=== PATIENT | female | born 1990 | race Hispanic/Latino ===

== ENCOUNTER → 2021-10-19 16:34 | Outpatient (CLI) | payer OTHER, SELFPAY ==
[2021-10-19 18:12] LABS: Add Manual Diff / Slide Review NO; Basophils Absolute Auto 0 /uL (0-100); Basophils Percent Auto 0.6 % (0-2); Eosinophils Absolute Auto 200 /uL (0-450); Eosinophils Percent Auto 3.2 % (2-4); Hematocrit 38.7 % (36-46); Hemoglobin 13.2 g/dL (12.0-16.0); Lymphocytes Absolute Auto 2600 /uL (1100-4500); Lymphocytes Percent Auto 37.3 % (25-40); Mean Corpuscular Hemoglobin 29.2 PG (26-34); Mean Corpuscular Volume 85.8 fL (80-100); Monocytes Absolute Auto 400 /uL (0-900); Monocytes Percent Auto 5.9 % (3-14); Neutrophils Absolute Auto 3700 /uL (1500-7000); Platelet Count 245 X10^3/uL (150-400); Red Blood Cell Count 4.52 X10^6/uL (4.0-5.2); Red Cell Distribution Width 12.5 % (11.6-14.8)
[2021-10-19 18:43] LABS: Hemoglobin A1C% w Est Avg Glu 5.3 % (4.0-6.0)
[2021-10-19 18:56] LABS: HEMOLYSIS < 15 (0-50); Iron 61 ug/dL (37-170)
[2021-10-19 19:02] LABS: Alanine Aminotransferase 11 IU/L (<35); Albumin 4.1 g/dL (3.5-5.0); Albumin Globulin Ratio 1.3 (1.0-2.8); Alkaline Phosphatase 63 U/L (38-126); Aspartate Aminotransferase 21 IU/L (14-36); Bilirubin Total 0.3 mg/dL (0.2-1.3); Blood Urea Nitrogen 17 mg/dL (7-17); Calcium 8.5 mg/dL (8.4-10.2); Carbon Dioxide 26 mmol/L (22-32); Chloride 103 mmol/L (98-107); Estimated Glomerular Filt Rate > 60 mL/min (>60); Globulin 3.1 g/dL (1.7-4.1); Glucose 86 mg/dL (70-100); HEMOLYSIS < 15 (0-50); Lipase 111 U/L (23-300); Potassium 4.1 mmol/L (3.4-5.1); Sodium 139 mmol/L (137-145); Total Protein 7.2 g/dL (6.3-8.2)
[2021-10-19 19:07] LABS: Percent Iron Saturation 17 % (15-50); Total Iron Binding Capacity 353 ug/dL (265-497); Transferrin 266 mg/dL (206-381)
[2021-10-19 19:28] LABS: TSH w/ Reflex to FT4 1.36 uIU/mL (0.47-4.68)
[2021-10-21 11:39] LABS: Insulin Level Total 7.7 uIU/mL (2.6-24.9)
== END ==
PROVIDERS: PCP Pediatrics; Referring Provider Pediatrics; Visit Provider Pediatrics
DX: E16.2 Hypoglycemia, unspecified (principal); R53.83 Other fatigue
CPT/HCPCS: 36415; 80053; 83036; 83525; 83540; 83550; 83690; 84443; 85025

== ENCOUNTER → 2022-03-12 07:02 | Outpatient (CLI) | payer OTHER, SELFPAY ==
[2022-03-12 08:39] LABS: Add Manual Diff / Slide Review NO; Basophils Absolute Auto 0 /uL (0-100); Basophils Percent Auto 0.3 % (0-2); Eosinophils Absolute Auto 100 /uL (0-450); Eosinophils Percent Auto 1.6 % (2-4); Hematocrit 37.8 % (36-46); Hemoglobin 12.8 g/dL (12.0-16.0); Lymphocytes Absolute Auto 1600 /uL (1100-4500); Mean Corpuscular HGB Conc 33.9 % (30-36); Mean Corpuscular Volume 85.6 fL (80-100); Monocytes Absolute Auto 400 /uL (0-900); Monocytes Percent Auto 5.7 % (3-14); Neutrophils Absolute Auto 5100 /uL (1500-7000); Neutrophils Percent Auto 70.4 % (50-75); Platelet Count 253 X10^3/uL (150-400); Red Blood Cell Count 4.42 X10^6/uL (4.0-5.2); White Blood Cell Count 7.2 X10^3/uL (4.5-11.0)
[2022-03-12 09:07] LABS: Specimen Label NATERA
[2022-03-12 09:43] LABS: Hepatitis B Surface Antigen NEGATIVE s/c (NEGATIVE); Rubella Antibody IgG 12.8 IU/mL (>15)
[2022-03-12 10:00] LABS: HIV 1 & 2 Ab/Ag 4th Gen Combo NEGATIVE (NEGATIVE); Hep C Virus Ab w/Reflex Quant NEGATIVE s/c (NEGATIVE)
[2022-03-12 10:38] LABS: Appearance Urine UA CLEAR; Bilirubin Urine UA NEGATIVE (NEGATIVE); Color Urine UA YELLOW; Glucose Urine UA NEGATIVE (Negative); Ketones Urine UA NEGATIVE (NEGATIVE); Leukocyte Esterase Urine UA NEGATIVE (NEGATIVE); Nitrite Urine UA NEGATIVE (Negative); Occult Blood Urine UA NEGATIVE (Negative); Protein Urine UA TRACE (Negative); Specific Gravity Urine UA 1.015 (1.000-1.035); Urobilinogen Urine UA 0.2 E.U./dL (0.2)
[2022-03-12 10:39] LABS: pH Urine UA 8.5 (4.5-8.0)
[2022-03-13 08:12] LABS: RPR Screen Non Reactive (Non Reactive); Varicella IgG Antibody 602 index (Immune >165)
== END ==
PROVIDERS: PCP Pediatrics; Referring Provider Obstetrics & Gynecology; Visit Provider Obstetrics & Gynecology
DX: O09.521 Supervision of elderly multigravida, first trimester (principal)
CPT/HCPCS: 36415; 80055; 81003; 86787; 86803; 86850; 86900; 86901; 87086; 87389

== ENCOUNTER 2022-03-13 10:48 | Emergency (ER) | payer OTHER, SELFPAY ==
[2022-03-13 11:19] VITALS: BP 129/72; PULSE 74; RESP 15; TEMP 36.6; O2SAT 100; BMI 33.3
--- NOTE | 2022-03-13 11:21 | DI.US.S_ITS ---
PROCEDURE: US OB <= 14 WEEKS FETUS INDICATIONS: VAGINAL BLEEDING AT 10 WEEKS OUTSIDE/PRIOR DATING DATA: Last menstrual period (LMP): 12/30/2021. LMP-based estimated date of delivery (DAWIT): 10/06/2022. First dating scan (date and location): 02/26/2022. Estimated date of delivery (DAWIT) from first dating scan: 10/09/2019. TECHNIQUE: Real-time scanning was performed of the fetus and maternal pelvic organs, with image documentation. Endovaginal scanning was also performed to better visualize the fetus and maternal ovaries. COMPARISON: [facility], , OB <= 14 WEEKS FETUS, 02/26/2022, 12:19. FINDINGS: Heart rate is 169 beats per minute. [place]-rump length is 4.5 centimeters with an estimated gestational age of 11 weeks and 2 days. Multiple fibroids measuring up to 2.6 centimeters. No significant perigestational hemorrhage is identified. Left ovarian cyst measuring up to 4.9 centimeters. Right ovary is not well seen. IMPRESSION: Living intrauterine gestation measuring 11 weeks and 2 days by crown-rump length. No significant perigestational hemorrhage. We strive to produce accurate, complete, and clear reports of imaging services. To assist us in improving patient care, this report was composed using standard report templates and voice recognition software. Therefore, it may contain abnormal punctuation, insertions and/or omissions. Occasional wrong-word or sound-alike substitutions may occur. Though we review the report and make efforts to correct it, we do recommend that the report be read carefully in proper context to recognize any text inaccuracies. Dictated by: Stan Bartholomew M.D. on 03/13/2022 at 12:08 Approved by: Stan Bartholomew M.D. on 03/13/2022 at 12:10
[2022-03-13 11:48] LABS: Add Manual Diff / Slide Review NO; Basophils Absolute Auto 0 /uL (0-100); Basophils Percent Auto 0.3 % (0-2); Eosinophils Absolute Auto 100 /uL (0-450); Eosinophils Percent Auto 1.4 % (2-4); Hematocrit 38.2 % (36-46); Lymphocytes Absolute Auto 1800 /uL (1100-4500); Lymphocytes Percent Auto 20.5 % (25-40); Mean Corpuscular Hemoglobin 29.1 PG (26-34); Mean Corpuscular Volume 85.6 fL (80-100); Monocytes Absolute Auto 600 /uL (0-900); Monocytes Percent Auto 6.6 % (3-14); Neutrophils Absolute Auto 6300 /uL (1500-7000); Neutrophils Percent Auto 71.2 % (50-75); Platelet Count 250 X10^3/uL (150-400); Red Blood Cell Count 4.47 X10^6/uL (4.0-5.2); Red Cell Distribution Width 13.1 % (11.6-14.8); White Blood Cell Count 8.8 X10^3/uL (4.5-11.0)
[2022-03-13 11:51] LABS: Alanine Aminotransferase 14 IU/L (<35); Albumin 3.8 g/dL (3.5-5.0); Albumin Globulin Ratio 1.2 (1.0-2.8); Alkaline Phosphatase 53 U/L (38-126); Aspartate Aminotransferase 17 IU/L (14-36); BUN Creatinine Ratio 18.4 (6-22); Bilirubin Total 0.4 mg/dL (0.2-1.3); Blood Urea Nitrogen 9 mg/dL (7-17); Calcium 8.6 mg/dL (8.4-10.2); Carbon Dioxide 24 mmol/L (22-32); Chloride 104 mmol/L (98-107); Estimated Glomerular Filt Rate > 60 mL/min (>60); Globulin 3.2 g/dL (1.7-4.1); Glucose 88 mg/dL (70-100); HEMOLYSIS < 15 (0-50); Potassium 4.1 mmol/L (3.4-5.1); Sodium 136 mmol/L (137-145)
--- NOTE | 2022-03-13 12:18 | ED_ITS ---
HPI - General Chief complaint: Vaginal Bleeding Stated complaint: 10wks , Spotting Time Seen by Provider: 03/13/22 12:17 Source: patient Mode of arrival: Ambulatory Limitations: no limitations History of Present Illness HPI Narrative: This is a 31-year-old female who is 10 weeks and presents to emergency department with light vaginal spotting which started last night, states that she has had morning sickness the last 2 nights, states that the bleeding has progressed today now with clotting, she has needed to change her pad. Related Data Home Medications Medication Instructions Recorded Confirmed calcium carb,cit ER 600 mg-vit D3 2 tab PO DAILY 02/05/22 02/26/22 12.5 mcg (500 unit) tablet,ext.rel (Citracal-D3 Slow Release) cetirizine 10 mg tablet (Zyrtec) 10 mg PO DAILY PRN 02/05/22 02/26/22 prenat.vits,jerry,duu-stgz-pvjna 1 tab PO DAILY 02/05/22 02/26/22 Allergies Allergy/AdvReac Type Severity Reaction Status Date / Time No Known Drug Allergies Allergy Verified 03/13/22 11:19 Review of Systems Review of Systems Narrative: Review of systems is negative for acute abnormalities unless otherwise noted in HPI Exam Narrative Exam Narrative: Reviewed vitals signs and nursing notes. General: cooperative, comfortable, in no acute distress, well groomed HEENT: symmetrical facial expressions, moist mucous membranes Abdomen: Gravid, soft palpation, without tenderness, no suprapubic tenderness, endorses mild cramping without flank tenderness, pad with small amount of dark red clots MSK: moves all extremities, neurovascularly intact, no weakness, normal tone Skin: brisk capillary refill, without pallor or erythema Neuro: normal speech and cognition, A&O x3, ambulatory, clear speech Psych: mental status is grossly normal, congruent mood, normal affect, pleasant and cooperative Initial Vital Signs Initial Vital Signs: Vital Signs Temperature 97.8 F 03/13/22 11:19 Pulse Rate 74 03/13/22 11:19 Respiratory Rate 15 03/13/22 11:19 Blood Pressure 129/72 03/13/22 11:19 Pulse Oximetry 100 03/13/22 11:19 Oxygen Delivery Method 03/13/22 11:19 Course Orders Ordered: ED Orders 03/13/22 11:21 US OB <= 14 weeks fetus Stat 03/13/22 11:24 ABO RH Type Stat Complete Blood Count AUTO DIFF Stat Comprehensive Metabolic Panel Stat HCG Quantitative /Beta subunit Stat 03/13/22 12:03 Urine Microscopic Stat Consultations Consultation #1: Consultation with Dr. Amaya who was on-call for OBGYN, she recommends watching and waiting, follow-up at Dr. Qureshi's office, Vital Signs Vital signs: Vital Signs - 8 hr 03/13/22 11:19 03/13/22 14:47 03/13/22 15:25 Temperature 97.8 F Pulse Rate 74 86 84 Respiratory Rate 15 22 Blood Pressure 129/72 131/61 116/80 Pulse Oximetry 100 99 99 Oxygen Delivery Method Room Air Room Air Room Air MDM - OB/Uterine Contractions Lab Data Result diagrams: 03/13/22 11:24 03/13/22 11:24 Labs: Lab Results 03/13/22 03/13/22 03/13/22 Range/Units 11:24 11:24 11:24 WBC 8.8 (4.5-11.0) X10^3/uL RBC 4.47 (4.0-5.2) X10^6/uL Hgb 13.0 (12.0-16.0) g/dL Hct 38.2 (36-46) % MCV 85.6 (80-100) fL MCH 29.1 (26-34) PG MCHC 34.0 (30-36) % RDW 13.1 (11.6-14.8) % Plt Count 250 (150-400) X10^3/uL Neut % (Auto) 71.2 (50-75) % Lymph % (Auto) 20.5 L (25-40) % [place] % (Auto) 6.6 (3-14) % Eos % (Auto) 1.4 L (2-4) % Baso % (Auto) 0.3 (0-2) % Neut # (Auto) 6300 (6590-3684) /uL Lymph # (Auto) 1800 (9807-0900) /uL [place] # (Auto) 600 (0-900) /uL Eos # (Auto) 100 (0-450) /uL Baso # (Auto) 0 (0-100) /uL Sodium 136 L (137-145) mmol/L Potassium 4.1 (3.4-5.1) mmol/L Chloride 104 (98-107) mmol/L Carbon Dioxide 24 (22-32) mmol/L BUN 9 (7-17) mg/dL Creatinine 0.49 L (0.52-1.04) mg/dL Estimated GFR > 60 (>60) mL/min BUN/Creatinine Ratio 18.4 (6-22) Glucose 88 (70-100) mg/dL Calcium 8.6 (8.4-10.2) mg/dL Total Bilirubin 0.4 (0.2-1.3) mg/dL AST 17 (14-36) IU/L ALT 14 (<35) IU/L Alkaline Phosphatase 53 (38-126) U/L Total Protein 7.0 (6.3-8.2) g/dL Albumin 3.8 (3.5-5.0) g/dL Globulin 3.2 (1.7-4.1) g/dL Albumin/Globulin Ratio 1.2 (1.0-2.8) HCG, Quant 38290 mIU/mL Urine RBC (0-5/HPF) Urine WBC (0-5/HPF) Ur Squamous Epith Cells (0-5/HPF) Urine Bacteria (None) Ur Culture Indicated? Blood Type AB Positive 03/13/22 Range/Units 12:03 WBC (4.5-11.0) X10^3/uL RBC (4.0-5.2) X10^6/uL Hgb (12.0-16.0) g/dL Hct (36-46) % MCV (80-100) fL MCH (26-34) PG MCHC (30-36) % RDW (11.6-14.8) % Plt Count (150-400) X10^3/uL Neut % (Auto) (50-75) % Lymph % (Auto) (25-40) % [place] % (Auto) (3-14) % Eos % (Auto) (2-4) % Baso % (Auto) (0-2) % Neut # (Auto) (4707-3421) /uL Lymph # (Auto) (4784-8345) /uL [place] # (Auto) (0-900) /uL Eos # (Auto) (0-450) /uL Baso # (Auto) (0-100) /uL Sodium (137-145) mmol/L Potassium (3.4-5.1) mmol/L Chloride (98-107) mmol/L Carbon Dioxide (22-32) mmol/L BUN (7-17) mg/dL Creatinine (0.52-1.04) mg/dL Estimated GFR (>60) mL/min BUN/Creatinine Ratio (6-22) Glucose (70-100) mg/dL Calcium (8.4-10.2) mg/dL Total Bilirubin (0.2-1.3) mg/dL AST (14-36) IU/L ALT (<35) IU/L Alkaline Phosphatase (38-126) U/L Total Protein (6.3-8.2) g/dL Albumin (3.5-5.0) g/dL Globulin (1.7-4.1) g/dL Albumin/Globulin Ratio (1.0-2.8) HCG, Quant mIU/mL Urine RBC 1-5/hpf (0-5/HPF) Urine WBC None seen (0-5/HPF) Ur Squamous Epith Cells None seen (0-5/HPF) Urine Bacteria None seen (None) Ur Culture Indicated? Cult not indicated Blood Type Urine Dip Bedside Urine Glucose Negative Bedside Urine Bilirubin - Negative Bedside Urine Ketone - Negative Urine Specific [place] 1.015 Bedside Urine Occult Blood +++ Bedside Urine pH 7.0 Bedside Urine Protein - Negative Bedside Urine Urobilinogen - Negative Bedside Urine Nitrite - Negative Bedside Urine Leukocytes - Negative Esterase Imaging Data US - OB: Radiologist's Impression: PROCEDURE:? US OB <= 14 WEEKS FETUS ? INDICATIONS:? VAGINAL BLEEDING AT 10 WEEKS ? OUTSIDE/PRIOR DATING DATA:? Last menstrual period (LMP):? 12/30/2021.? LMP-based estimated date of delivery (DAWIT):? 10/06/2022.? First dating scan (date and location):? 02/26/2022.? Estimated date of delivery (DAWIT) from first dating scan:? 10/09/2019. ? TECHNIQUE:? Real-time scanning was performed of the fetus and maternal pelvic organs, with image documentation.? Endovaginal scanning was also performed to better visualize the fetus and maternal ovaries.? ? COMPARISON:? [facility], [place], US OB <= 14 WEEKS FETUS, , 12:19. ? FINDINGS:? Heart rate is 169 beats per minute.? [place]-rump length is 4.5 centimeters with an estimated gestational age of 11 weeks and 2 days. ? Multiple fibroids measuring up to 2.6 centimeters.? No significant perigestational hemorrhage is identified. ? Left ovarian cyst measuring up to 4.9 centimeters.? Right ovary is not well seen. ? IMPRESSION:? Living intrauterine gestation measuring 11 weeks and 2 days by crown-rump length.? No significant perigestational hemorrhage. ? We strive to produce accurate, complete, and clear reports of imaging services. To assist us in improving patient care, this report was composed using standard report templates and voice recognition software. Therefore, it may contain abnormal punctuation, insertions and/or omissions. Occasional wrong-word or sound-alike substitutions may occur. Though we review the report and make efforts to correct it, we do recommend that the report be read carefully in proper context to recognize any text cole ccuracies. ? ? Dictated by: Stan Bartholomew M.D. on 03/13/2022 at 12:08 ? ? Approved by: Stan Bartholomew M.D. on 03/13/2022 at 12:10 ? MDM Narrative Medical decision making narrative: 31-year-old female, who is 10 weeks' gestation, presents to the emergency department with progressive vaginal bleeding that started last night, OB ultrasound saw a living intrauterine gestation measuring 11 weeks and 2 days without danyel gestational hemorrhage, multiple fibroids measuring up to 2.6 cm without significant perigestational hemorrhage, left ovarian cyst measuring 4.9 cm, right ovary is not well seen. Heart rate of the fetus was 169 beats per minute. Patient's lab work overall is reassuring. Patient's bleeding did increase while she was waiting in the emergency department over the 4 and a hours, phone call with Dr. Lacy was covering OBGYN who recommends follow-up with Dr. Qureshi's triage nurse whom I spoke with, Dr. Qureshi will be in touch and is aware that patient's vaginal bleeding has increased, she was updated about the ultrasound and will schedule follow-up for the patient within the next 24-48 hours. She was instructed to return if her symptoms worsen between now then, to stay hydrated, if her bleeding becomes increase or severe, to come directly to the emergency department and not to wait for an ultrasound. Discharge Plan Departure Patient Disposition: Home Clinical Impression: Vaginal bleeding in Instructions: DI for Vaginal Bleeding During Activity Restrictions/Additional Instructions: *You have been diagnosed with vaginal bleeding . I have spoke with the triage nurse at Dr. Qureshi's office, she will be in contact with you before the end of the day about following up with ultrasound. If you are unable to get back into the clinic for an ultrasound with a provider in the next 24-48 hours, you may return to the emergency department for any worsening symptoms, increased bleeding, if you have nausea, vomiting, chills or feel lightheaded, please come to the emergency department instead of waiting for an ultrasound. Please take Tylenol as needed for cramping, try to keep drinking clear fluids and stay hydrated. Your urine does not look like it did today, Dr. Qureshi is out of town but she is checking email in speaking with the triage nurse so she will hear about the update from the emergency department and be in touch. Thank you for your patience today, I hope you feel better soon. *What to do: *Please continue to take your regular medications as directed. [ ] New medication prescriptions sent to your pharmacy: [ ] [ ] New medication written as a paper prescription [x ] No new medications given *Please follow up with your primary care provider in 2-3 days, call for an appointment. Let them know you were seen in the Emergency Department and that we asked that you be seen for follow-up. We will electronically transmit a record of today's note if your PCP is in our system *If you do not have a primary care provider please contact [phone] to establish care with one of [facility] primary care providers. *Return to Emergency Department if you should have any new, worsening, or concerning symptoms, such as [fever greater than 101F, chills, worsening pain, persistent vomiting or other bothersome symptoms]. Prescriptions: No Action prenat.vits,jerry,ood-vrrk-gcpkg Tablet 1 tab PO DAILY calcium carb and citrate-vitD3 [Citracal-D3 Slow Release] 600 mg-12.5 mcg (500 unit) tablet extended release 2 tab PO DAILY cetirizine [Zyrtec] 10 mg tablet 10 mg PO DAILY PRN Referrals: Neelima Qureshi MD [Physician] - Milo Hernandez MD [Primary Care Provider] - Visit Report Forms: Patient Portal/API
[2022-03-13 12:32] LABS: HCG Quantitative /Beta subunit 70185 mIU/mL
[2022-03-13 13:18] LABS: Bacteria Urine None Seen; Culture Indicated Urine Cult Not Indicated; RBC Urine 1-5/HPF (0-5/HPF); Squamous Epithelial Cell Urine None Seen (0-5/HPF); WBC Urine None Seen (0-5/HPF)
[2022-03-13 14:47] VITALS: BP 131/61; PULSE 86; O2SAT 99
[2022-03-13 15:25] VITALS: BP 116/80; PULSE 84; RESP 22; O2SAT 99
== END 2022-03-13 15:26 | disposition home or self-care (01) ==
PROVIDERS: Emergency Medicine; Emergency Provider Nurse Practitioner Critical Care Medicine; PCP Pediatrics
DX: O46.91 Antepartum hemorrhage, unspecified, first trimester (principal); Z3A.10 10 weeks gestation of pregnancy
CPT/HCPCS: 36415; 76801; 76817; 80053; 81003; 81015; 84702; 85025; 86900; 86901; 99281; 99284

== ENCOUNTER → 2022-03-26 10:26 | Outpatient (CLI) | payer OTHER, SELFPAY ==
[2022-03-26 15:13] LABS: Urine N gonorrhoeae NOT DETECTED
[2022-03-26 15:22] LABS: Urine Chlamydia NOT DETECTED
== END ==
PROVIDERS: PCP Pediatrics; Visit Provider Obstetrics & Gynecology
DX: Z34.81 Encounter for supervision of other normal pregnancy, first trimester (principal); Z3A.12 12 weeks gestation of pregnancy
CPT/HCPCS: 87491; 87591

== ENCOUNTER → 2022-04-25 07:58 | Outpatient (CLI) | payer OTHER, SELFPAY ==
[2022-04-27 22:03] LABS: AFP Value 28.8 ng/mL (.); Gest Age on Col Date 16.6 weeks (.); Insulin Dep Diabetes No (.); OSBR Risk 1IN 10000 (.); Results Report (.); Test Results *Screen Negative* (.)
== END ==
PROVIDERS: Referring Provider Obstetrics & Gynecology; Visit Provider Obstetrics & Gynecology
DX: Z34.82 Encounter for supervision of other normal pregnancy, second trimester (principal); Z3A.16 16 weeks gestation of pregnancy; R31.9 Hematuria, unspecified
CPT/HCPCS: 36415; 82105; 87086

== ENCOUNTER → 2022-05-28 06:48 | Outpatient (CLI) | payer OTHER, SELFPAY ==
--- NOTE | 2022-05-28 06:49 | DI.US.S_ITS ---
PROCEDURE: US OB >= 14 WEEKS FETUS INDICATIONS: ANATOMY OUTSIDE/PRIOR DATING DATA: Last menstrual period (LMP): 12/30/2021. LMP-based estimated date of delivery (DAWIT): 10/06/2022. First dating scan (date and location): 02/26/2022. Estimated date of delivery (DAWIT) from first dating scan: 02/26/2022. The calculations are made using the ultrasound DAWIT of 10/08/2022. TECHNIQUE: Real-time scanning was performed of the fetus, with image documentation and biometric measurements. Endovaginal scanning: Not performed. COMPARISON: None. FINDINGS: General: A single living intrauterine gestation is present. Presentation: Breech. Placenta: Placental position is posterior , without previa. Amniotic fluid index: 15.6 cm cm, normal range is 5-24 cm. Single deepest vertical pocket is 4.9 cm. heart rate: 143 beats per minute. Maternal cervical canal: 3.7 cm long. Normal lower limit is 2.5 cm. biometrics: Biparietal diameter: 4.9 cm Head circumference: 18.9 cm Abdominal circumference: 17.0 cm Femur length: 3.6 cm Clinically estimated gestational age: 21 weeks 2 days Composite gestational age from present scan: 21 weeks 3 days Estimated weight and percentile: 444 g, 67th percentile Anatomic survey: Neuro: Ventricles are non-dilated at less than 10 mm. Cisterna magna is normal at 3-11 mm. Cerebellum is normal in size and morphology. Nuchal skin fold: Normal at less than 6 mm between 14-21 weeks gestational age. Face: Nose and lips, facial profile are normal. Spine: No evidence for spina bifida. Heart: 4-chambered heart is present, with normal ventricular outflow tracts. Diaphragm: Diaphragm is intact. Stomach: Left-sided stomach is present. Kidneys: No hydronephrosis. Normal is less than 5 mm in 2nd trimester, less than 7 mm in 3rd trimester. Cord: 3-vessel cord has orthotopic insertion. Bladder: Normal in size. Extremities: All 4 extremities identified. IMPRESSION: Single living intrauterine gestation, estimated gestational age 21 weeks 3 days based on today's examination. Normal anatomic survey. We strive to produce accurate, complete, and clear reports of imaging services. To assist us in improving patient care, this report was composed using standard report templates and voice recognition software. Therefore, it may contain abnormal punctuation, insertions and/or omissions. Occasional wrong-word or sound-alike substitutions may occur. Though we review the report and make efforts to correct it, we do recommend that the report be read carefully in proper context to recognize any text inaccuracies. Dictated by: Marc Quezada M.D. on 05/28/2022 at 13:07 Approved by: Marc Quezada M.D. on 05/28/2022 at 13:09
== END ==
PROVIDERS: Referring Provider Obstetrics & Gynecology; Visit Provider Obstetrics & Gynecology
DX: Z34.82 Encounter for supervision of other normal pregnancy, second trimester (principal); Z3A.21 21 weeks gestation of pregnancy
CPT/HCPCS: 76811

== ENCOUNTER 2022-06-14 15:06 | Emergency (ER) | payer OTHER, SELFPAY ==
[2022-06-14] VITALS (9 sets, daily range): BP systolic 129–160; BP diastolic 63–73; PULSE 87–95; RESP 16–58; TEMP 36.6; O2SAT 98–100; BMI 34.9
--- NOTE | 2022-06-14 15:19 | DI.RAD.S_ITS ---
PROCEDURE: XR CHEST 1V INDICATIONS: Shortness of breath TECHNIQUE: One view of the chest was acquired. COMPARISON: None. FINDINGS: Surgical changes and devices: None. Lungs and pleura: Lungs are clear. No pleural effusions or pneumothorax. Mediastinum: Mediastinal contours appear normal. Heart size is normal. Bones and chest wall: No suspicious bony lesions. Overlying soft tissues appear unremarkable. IMPRESSION: No acute pulmonary process. Dictated by: Antoinette White M.D. on 06/14/2022 at 16:05 Approved by: Antoinette White M.D. on 06/14/2022 at 16:05
[2022-06-14 15:45] LABS: Add Manual Diff / Slide Review NO; Basophils Absolute Auto 100 /uL (0-100); Basophils Percent Auto 0.5 % (0-2); Eosinophils Absolute Auto 300 /uL (0-450); Eosinophils Percent Auto 2.6 % (2-4); Hemoglobin 12.4 g/dL (12.0-16.0); Lymphocytes Absolute Auto 1300 /uL (1100-4500); Lymphocytes Percent Auto 12.6 % (25-40); Mean Corpuscular HGB Conc 34.5 % (30-36); Mean Corpuscular Hemoglobin 30.1 PG (26-34); Mean Corpuscular Volume 87.2 fL (80-100); Monocytes Absolute Auto 700 /uL (0-900); Monocytes Percent Auto 6.5 % (3-14); Neutrophils Absolute Auto 8200 /uL (1500-7000); Neutrophils Percent Auto 77.8 % (50-75); Platelet Count 285 X10^3/uL (150-400); Red Blood Cell Count 4.13 X10^6/uL (4.0-5.2); Red Cell Distribution Width 13.6 % (11.6-14.8); White Blood Cell Count 10.5 X10^3/uL (4.5-11.0)
--- NOTE | 2022-06-14 15:51 | ED_ITS ---
HPI - General Adult General Chief complaint: Chest Pain Stated complaint: SOB, Fatigue, Chest tightness, Congestion Time Seen by Provider: 06/14/22 15:33 Source: patient Mode of arrival: Ambulatory Limitations: no limitations History of Present Illness HPI narrative: 31-year-old female. Is a at approximately 23 weeks EGA. Is here for evaluation of shortness of breath and cough and congestion and fatigue. She actually states that 2 months ago at the beginning of April she tested positive for COVID. She is had fairly consistent symptoms since that time. She denies fevers. She does have some cramping specifically when she is coughing but no loss of fluid. No fevers. She is being followed by OB. She was given a recommendation by OB for medications she can take during to try to help with her symptoms. States last evening she was coughing so much that she felt like her heart rate was beating fast and she somewhat panicked about her symptoms so she decided to come in today to be evaluated. Related Data Home Medications Medication Instructions Recorded Confirmed calcium carb,cit ER 600 mg-vit D3 2 tab PO DAILY 02/05/22 05/21/22 12.5 mcg (500 unit) tablet,ext.rel (Citracal-D3 Slow Release) cetirizine 10 mg tablet (Zyrtec) 10 mg PO DAILY PRN 02/05/22 05/21/22 prenat.vits,jerry,flc-vtir-hfqfj 1 tab PO DAILY 02/05/22 05/21/22 Previous Rx's Medication Instructions Recorded albuterol sulfate 90 mcg/actuation 2 puff inhalation Q4-6H PRN 06/14/22 aerosol inhaler shortness of breath or wheezing #8.5 grams Allergies Allergy/AdvReac Type Severity Reaction Status Date / Time No Known Drug Allergies Allergy Verified 06/14/22 15:54 Review of Systems Constitutional Constitutional: Reports system reviewed and no additional complaints, except as documented ENT Ears, Nose, Mouth, and Throat: Reports system reviewed and no additional complaints, except as documented Respiratory Respiratory: Reports system reviewed and no additional complaints, except as documented Gastrointestinal Gastrointestinal: Reports system reviewed and no additional complaints, except as documented Genitourinary Genitourinary: Reports system reviewed and no additional complaints, except as documented Integumentary/Breasts Skin/Breast: Reports system reviewed and no additional complaints, except as documented Hematologic/Lymphatic On Anticoagulants: No Patient History Medical History Acne (~2018) Anxiety and depression (~2018) Back pain Disease of spine (~2017) Fatigue Headache (~2018) Hypoglycemia Surgical History Anesthesia History of microdiscectomy (~10/11/18) History of sinus surgery (~01/2021) History of sleeve gastrectomy History of weight loss surgery (~06/11/21) [place] teeth extracted Family History Father Accident Mother Hypertension Diabetes mellitus Seizures Thyroid disease Hyperlipidemia Anxiety Grandfather Diabetes mellitus History of heart disease Hypertension Pancreatic cancer Social History marital status: number of children: 1 household members: spouse, family (mother) and children lives independently: Yes housing: house pets and animals: Yes (1 dog, manages all cleanup) education level: master's degree occupational status: previously employed and student current occupational exposures/hazards: No special andrea needs: No travel history: recent (domestic only) seatbelt use: always helmet use: Yes water heater temp set < 120 deg: Yes working smoke detector in home: Yes fire extinguisher in home: Yes carbon monox detector in home: Yes firearms in home: Yes firearms unloaded and locked: Yes do you feel safe at home: Yes Smoking Status: Never smoker second hand exposure: Yes (neighbors smoke) alcohol intake: never substance use type: does not use during the past year weight has: decreased > 10 lbs (gastric sleeve in May) well-balanced diet: daily or most days daily servings fruits/ve-4 caffeine: Yes (Aware of 200mg limit) Type(s) of exercise: walking and regular exercise (physical therapy) Smoking Status: Never smoker Exam Initial Vital Signs Initial Vital Signs: Vital Signs Pulse Rate 95 H 06/14/22 15:13 Pulse Oximetry 99 06/14/22 15:13 Const General: cooperative and comfortable Resp Effort & Inspection: normal respiratory effort, not labored, no respiratory distress, no retractions and not tachypneic Auscultation: clear to auscultation bilaterally Cardio Rate: regular rate Rhythm: regular rhythm GI Inspection: normal to inspection Skin General: no rashes or lesions noted Neuro General: patient alert, patient awake and moves all extremities Extrem General: normal to inspection and capillary refill normal Psych Appearance: grossly normal and well kempt Course Orders Ordered: ED Orders 06/14/22 15:19 XR chest 1V Stat EKG-12 Lead Stat Measure peak expiratory flow ONCE RT Consult Eval and Treat NOW 06/14/22 15:20 Complete Blood Count AUTO DIFF Stat Comprehensive Metabolic Panel Stat Lactate (Lactic Acid) Stat NT-proBNP (BNP-Adult 18+) Stat Prothrombin Time INR Stat Respiratory Panel (Film Array) Stat Troponin I Stat Vital Signs Vital signs: Vital Signs - 8 hr 06/14/22 15:15 06/14/22 15:13 06/14/22 15:14 Temperature 97.9 F Pulse Rate 90 95 H 92 H Respiratory Rate 16 Blood Pressure 129/63 Pulse Oximetry 100 99 100 Oxygen Delivery Method Room Air 06/14/22 15:14 06/14/22 15:30 06/14/22 16:00 Temperature Pulse Rate 91 H 87 Respiratory Rate 20 23 Blood Pressure 129/63 Pulse Oximetry 99 98 Oxygen Delivery Method 06/14/22 16:28 06/14/22 16:28 06/14/22 16:30 Temperature Pulse Rate 94 H Respiratory Rate 30 H Blood Pressure 141/71 H 144/73 H Pulse Oximetry Oxygen Delivery Method 06/14/22 16:30 06/14/22 17:00 06/14/22 17:01 Temperature Pulse Rate 92 H 90 95 H Respiratory Rate 23 58 H 40 H Blood Pressure Pulse Oximetry 99 99 Oxygen Delivery Method 06/14/22 17:01 Temperature Pulse Rate Respiratory Rate Blood Pressure 160/70 H Pulse Oximetry Oxygen Delivery Method Medical Decision Making Medical Records Medical records reviewed: Yes I reviewed the patient's medical records. Lab Data Lab results reviewed: Yes I reviewed the patient's lab results. 06/14/22 15:20 06/14/22 15:20 Labs: Lab Results 06/14/22 06/14/22 06/14/22 Range/Units 15:20 15:20 15:20 WBC 10.5 (4.5-11.0) X10^3/uL RBC 4.13 (4.0-5.2) X10^6/uL Hgb 12.4 (12.0-16.0) g/dL Hct 36.0 (36-46) % MCV 87.2 (80-100) fL MCH 30.1 (26-34) PG MCHC 34.5 (30-36) % RDW 13.6 (11.6-14.8) % Plt Count 285 (150-400) X10^3/uL Neut % (Auto) 77.8 H (50-75) % Lymph % (Auto) 12.6 L (25-40) % [place] % (Auto) 6.5 (3-14) % Eos % (Auto) 2.6 (2-4) % Baso % (Auto) 0.5 (0-2) % Neut # (Auto) 8200 H (8380-2533) /uL Lymph # (Auto) 1300 (8558-7567) /uL [place] # (Auto) 700 (0-900) /uL Eos # (Auto) 300 (0-450) /uL Baso # (Auto) 100 (0-100) /uL PT 12.3 (10.1-12.7) SECONDS INR 1.1 (0.9-1.3) Sodium 133 L (137-145) mmol/L Potassium 3.9 (3.4-5.1) mmol/L Chloride 104 (98-107) mmol/L Carbon Dioxide 23 (22-32) mmol/L BUN 10 (7-17) mg/dL Creatinine 0.44 L (0.52-1.04) mg/dL Estimated GFR > 60 (>60) mL/min BUN/Creatinine Ratio 22.7 H (6-22) Glucose 84 (70-100) mg/dL Lactate (0.7-2.1) mmol/L Calcium 8.5 (8.4-10.2) mg/dL Total Bilirubin 0.4 (0.2-1.3) mg/dL AST 25 (14-36) IU/L ALT 18 (<35) IU/L Alkaline Phosphatase 72 (38-126) U/L Troponin I < 0.012 (0.01-0.034) ng/mL NT-Pro-B Natriuret Pep 161 H (<125) pg/mL Total Protein 7.2 (6.3-8.2) g/dL Albumin 3.7 (3.5-5.0) g/dL Globulin 3.5 (1.7-4.1) g/dL Albumin/Globulin Ratio 1.1 (1.0-2.8) Chlamy pneumoniae PCR (Not Detect) Adenovirus (PCR) (Not Detect) B. pertussis DNA (PCR) (Not Detecte) B.parapertussis DNA PCR (Not Detecte) Coronavirus OC43 (PCR) (Not Detect) Coronavirus HKU1 (PCR) (Not Detect) Coronavirus 229E (PCR) (Not Detect) SARS-CoV-2 (PCR) (Not Detecte) Coronavirus NL63 (PCR) (Not Detect) Human Metapneumovir PCR (Not Detect) Influenza Type A (PCR) (Not Detect) Influenza Type B (PCR) (Not Detect) M. pneumoniae (PCR) (Not Detect) Parainfluenza 1 (PCR) (Not Detect) Parainfluenza 2 (PCR) (Not Detect) Parainfluenza 3 (PCR) (Not Detect) Parainfluenza 4 (PCR) (Not Detect) RSV (PCR) (Not Detect) Entero/Rhino (PCR) (Not Detect) 06/14/22 06/14/22 Range/Units 15:20 15:20 WBC (4.5-11.0) X10^3/uL RBC (4.0-5.2) X10^6/uL Hgb (12.0-16.0) g/dL Hct (36-46) % MCV (80-100) fL MCH (26-34) PG MCHC (30-36) % RDW (11.6-14.8) % Plt Count (150-400) X10^3/uL Neut % (Auto) (50-75) % Lymph % (Auto) (25-40) % [place] % (Auto) (3-14) % Eos % (Auto) (2-4) % Baso % (Auto) (0-2) % Neut # (Auto) (2013-2716) /uL Lymph # (Auto) (7192-9539) /uL [place] # (Auto) (0-900) /uL Eos # (Auto) (0-450) /uL Baso # (Auto) (0-100) /uL PT (10.1-12.7) SECONDS INR (0.9-1.3) Sodium (137-145) mmol/L Potassium (3.4-5.1) mmol/L Chloride (98-107) mmol/L Carbon Dioxide (22-32) mmol/L BUN (7-17) mg/dL Creatinine (0.52-1.04) mg/dL Estimated GFR (>60) mL/min BUN/Creatinine Ratio (6-22) Glucose (70-100) mg/dL Lactate 1.1 (0.7-2.1) mmol/L Calcium (8.4-10.2) mg/dL Total Bilirubin (0.2-1.3) mg/dL AST (14-36) IU/L ALT (<35) IU/L Alkaline Phosphatase (38-126) U/L Troponin I (0.01-0.034) ng/mL NT-Pro-B Natriuret Pep (<125) pg/mL Total Protein (6.3-8.2) g/dL Albumin (3.5-5.0) g/dL Globulin (1.7-4.1) g/dL Albumin/Globulin Ratio (1.0-2.8) Chlamy pneumoniae PCR Not detected (Not Detect) Adenovirus (PCR) Not detected (Not Detect) B. pertussis DNA (PCR) Not detected (Not Detecte) B.parapertussis DNA PCR Not detected (Not Detecte) Coronavirus OC43 (PCR) Not detected (Not Detect) Coronavirus HKU1 (PCR) Not detected (Not Detect) Coronavirus 229E (PCR) Not detected (Not Detect) SARS-CoV-2 (PCR) Not detected (Not Detecte) Coronavirus NL63 (PCR) Not detected (Not Detect) Human Metapneumovir PCR Not detected (Not Detect) Influenza Type A (PCR) Not detected (Not Detect) Influenza Type B (PCR) Not detected (Not Detect) M. pneumoniae (PCR) Not detected (Not Detect) Parainfluenza 1 (PCR) Not detected (Not Detect) Parainfluenza 2 (PCR) Not detected (Not Detect) Parainfluenza 3 (PCR) Not detected (Not Detect) Parainfluenza 4 (PCR) Detected H (Not Detect) RSV (PCR) Not detected (Not Detect) Entero/Rhino (PCR) Not detected (Not Detect) Imaging Data Chest x-ray: Radiologist's Impression: [address] [address] XRay Report Signed Patient: Nikkie Torres MR#: [id number] : 1990 Acct:[id number] Age/Sex: 31 / F Date of Service: 06/14/22 Loc: ED Accession Number: [id number] ?? Procedure: XR chest 1V Ordering Provider: Ryley Peterson D.O. PROCEDURE:? XR CHEST 1V ? INDICATIONS:? Shortness of breath ? TECHNIQUE:? One view of the chest was acquired.? ? COMPARISON:? None. ? FINDINGS:? ? Surgical changes and devices:? None.? ? Lungs and pleura:? Lungs are clear.? No pleural effusions or pneumothorax.? ? Mediastinum:? Mediastinal contours appear normal.? Heart size is normal.? ? Bones and chest wall:? No suspicious bony lesions.? Overlying soft tissues appear unremarkable.? ? IMPRESSION:? No acute pulmonary process. ? ? Dictated by: Antoinette White M.D. on 06/14/2022 at 16:05 ? ? Approved by: Antoinette White M.D. on 06/14/2022 at 16:05? ECG Data Attestation: I personally reviewed and interpreted this ECG as follows: Interpretation: Sinus rhythm Ventricular rate 98 Normal axis Normal QRS Normal QTC No ST T wave changes MDM Narrative Medical decision making narrative: We did discuss the risks and benefits of imaging studies during and given the length of time that she is been having symptoms I did recommend that we obtain a chest x-ray. This did not show any signs of pneumonia. Her lungs are clear. No wheezing. She has a nonproductive cough. She is no specific OB related complaints. Low suspicion for premature labor. She is parainfluenza positive. This does explain her symptoms today. I did inform her that it is unlikely that she is had parainfluenza for the past 2 months as more than likely that she is had multiple upper respiratory infections. There is no indication for antibiotics. I will send her home with an albuterol inhaler. This may provide her some relief if she starts to get into a coughing fit. She has other medications at home that were recommended by her OB doctor. She was given retu rn precautions. I did consider pulmonary embolism given her status however I feel is less likely given her workup here in the ER and the positive parainfluenza on the respiratory testing. She was given return precautions. She expressed understanding and agreement. Discharge Plan Departure Patient Disposition: Home Clinical Impression: Parainfluenza Instructions: Cough, DI for Viral Upper Respiratory Infection -- Adult Activity Restrictions/Additional Instructions: The benzoate/Tessalon which was the coughing medication has limited information in so I recommend that we try to avoid this medication. An albuterol inhaler was sent to [facility]. Be sure to increase your fluid intake. Contact your primary doctor and also your OB provider for a follow-up. Return to the emergency department for new symptoms. Prescriptions: New albuterol sulfate 90 mcg/actuation HFA aerosol inhaler 2 puff inhalation Q4-6H PRN (Reason: shortness of breath or wheezing) Qty: 8.5 0RF No Action prenat.vits,jerry,iqx-[id number]-guflt Tablet 1 tab PO DAILY calcium carb and citrate-vitD3 [Citracal-D3 Slow Release] 600 mg-12.5 mcg (500 unit) tablet extended release 2 tab PO DAILY cetirizine [Zyrtec] 10 mg tablet 10 mg PO DAILY PRN Referrals: Miscellaneous,Doctor, MD [Primary Care Provider] - Stand Alone Forms: Patient Portal/API
[2022-06-14 15:55] LABS: Lactate (Lactic Acid) 1.1 mmol/L (0.7-2.1)
[2022-06-14 15:57] LABS: Alanine Aminotransferase 18 IU/L (<35); Albumin 3.7 g/dL (3.5-5.0); Albumin Globulin Ratio 1.1 (1.0-2.8); Alkaline Phosphatase 72 U/L (38-126); Aspartate Aminotransferase 25 IU/L (14-36); BUN Creatinine Ratio 22.7 (6-22); Bilirubin Total 0.4 mg/dL (0.2-1.3); Blood Urea Nitrogen 10 mg/dL (7-17); Calcium 8.5 mg/dL (8.4-10.2); Carbon Dioxide 23 mmol/L (22-32); Chloride 104 mmol/L (98-107); Estimated Glomerular Filt Rate > 60 mL/min (>60); Globulin 3.5 g/dL (1.7-4.1); Glucose 84 mg/dL (70-100); HEMOLYSIS 29 (0-50); Potassium 3.9 mmol/L (3.4-5.1); Sodium 133 mmol/L (137-145); Total Protein 7.2 g/dL (6.3-8.2)
[2022-06-14 16:05] LABS: INR 1.1 (0.9-1.3); Prothrombin Time 12.3 SECONDS (10.1-12.7)
[2022-06-14 16:08] LABS: NT-proBNP (BNP-Adult 18+) 161 pg/mL (<125); Troponin I < 0.012 ng/mL (0.01-0.034)
[2022-06-14 16:55] LABS: Adenovirus Not Detected (Not Detect); B. parapertussis Not Detected (Not Detecte); Bordetella pertussis Not Detected (Not Detecte); Chlamydophila pneumoniae Not Detected (Not Detect); Coronavirus 229E Not Detected (Not Detect); Coronavirus HKU1 Not Detected (Not Detect); Coronavirus NL 63 Not Detected (Not Detect); Coronavirus OC43 Not Detected (Not Detect); Human Metapneumovirus Not Detected (Not Detect); Human Rhinovirus/Enterovirus Not Detected (Not Detect); Influenza A Not Detected (Not Detect); Influenza B Not Detected (Not Detect); Mycoplasma pneumoniae Not Detected (Not Detect); Parainfluenza Virus 1 Not Detected (Not Detect); Parainfluenza Virus 2 Not Detected (Not Detect); Parainfluenza Virus 3 Not Detected (Not Detect); Parainfluenza Virus 4 Detected (Not Detect); Respiratory Syncytial Virus Not Detected (Not Detect); SARS- CoV-2 Not Detected (Not Detecte)
== END 2022-06-14 17:15 | disposition home or self-care (01) ==
PROVIDERS: Emergency Provider Emergency Medicine
DX: O98.512 Other viral diseases complicating pregnancy, second trimester (principal); B34.8 Other viral infections of unspecified site; R07.9 Chest pain, unspecified; Z3A.23 23 weeks gestation of pregnancy; Z20.822 Contact with and (suspected) exposure to COVID-19
CPT/HCPCS: 36415; 71045; 80053; 83605; 83880; 84484; 85025; 85610; 87633; 93005; 99284

== ENCOUNTER → 2022-07-11 07:22 | Outpatient (CLI) | payer OTHER, SELFPAY | PROVIDERS: Referring Provider Obstetrics & Gynecology; Visit Provider Obstetrics & Gynecology | DX: Z34.82 Encounter for supervision of other normal pregnancy, second trimester (principal); Z3A.26 26 weeks gestation of pregnancy | CPT/HCPCS: 36415 ==

== ENCOUNTER → 2022-07-15 12:49 | Outpatient (CLI) | payer OTHER, SELFPAY ==
[2022-07-15 14:22] LABS: Hematocrit 33.7 % (36-46); Hemoglobin 11.6 g/dL (12.0-16.0)
[2022-07-15 14:39] LABS: GTT (PREG) 1 Hour PP 50gm Dose 113 mg/dL (76-139)
== END ==
PROVIDERS: Referring Provider Obstetrics & Gynecology; Visit Provider Obstetrics & Gynecology
DX: Z34.82 Encounter for supervision of other normal pregnancy, second trimester (principal); Z3A.26 26 weeks gestation of pregnancy
CPT/HCPCS: 36415; 82950; 85014; 85018

== ENCOUNTER 2022-07-16 15:04 | Outpatient (CLI) | payer OTHER, SELFPAY ==
--- NOTE | 2022-07-18 12:08 | PM.OBTRLD ---
Visit Information Visit Information Date of evaluation: 07/16/22 Primary OB Provider: Neelima Qureshi On-call OB Provider: Hao Santo Reason for Evaluation: Yes non-stress test Comments/Additional reasons for admission: Patient originally seen in clinic and reported no movement for nearly 24 hours. Patient was sent to labor and delivery NST was performed she had a reactive strip and was discharged with instructions to continue her next clinic appointment [facility] Medical History Acne (~2017) Anxiety and depression (~2018) Back pain Disease of spine (~2017) Fatigue Headache (~2017) Hypoglycemia Surgical History Anesthesia History of microdiscectomy (~10/11/18) History of sinus surgery (~01/2021) History of sleeve gastrectomy History of weight loss surgery (~06/11/21) [place] teeth extracted Family History Father Accident Mother Hypertension Diabetes mellitus Seizures Thyroid disease Hyperlipidemia Anxiety Grandfather Diabetes mellitus History of heart disease Hypertension Pancreatic cancer Social History marital status: number of children: 1 household members: spouse, family (mother) and children lives independently: Yes housing: house pets and animals: Yes (1 dog, manages all cleanup) education level: master's degree occupational status: previously employed and student current occupational exposures/hazards: No special andrea needs: No travel history: recent (domestic only) seatbelt use: always helmet use: Yes water heater temp set < 120 deg: Yes working smoke detector in home: Yes fire extinguisher in home: Yes carbon monox detector in home: Yes firearms in home: Yes firearms unloaded and locked: Yes do you feel safe at home: Yes Smoking Status: Never smoker second hand exposure: Yes (neighbors smoke) alcohol intake: never substance use type: does not use during the past year weight has: decreased > 10 lbs (gastric sleeve in May) well-balanced diet: daily or most days daily servings fruits/ve-4 caffeine: Yes (Aware of 200mg limit) Type(s) of exercise: walking and regular exercise (physical therapy) Evaluation Evaluation Baseline heart rate: 154 Variability: Average (6-10) monitor accelerations: Present Monitor Decelerations: Absent Contraction Frequency (minutes): 0 Category of Tracing: Reactive Comments: Patient discharged after reactive NST Diagnosis, Plan/Disposition Final Diagnosis (1) Second trimester : Status: Acute (2) Anxiety and depression: Status: Acute (3) Decreased movement affecting management of mother, antepartum: Status: Acute
== END 2022-07-16 16:17 | disposition home or self-care (01) ==
LOC: LABOR 15:21 → OB 07-22 08:18
PROVIDERS: PCP Urology; Referring Provider Obstetrics & Gynecology; Visit Provider Obstetrics & Gynecology
DX: O36.8130 Decreased fetal movements, third trimester, not applicable or unspecified (principal); Z3A.28 28 weeks gestation of pregnancy
CPT/HCPCS: 59025; G0378; G0379

== ENCOUNTER → 2022-08-05 15:11 | Outpatient (CLI) | payer OTHER, SELFPAY ==
[2022-08-07 13:10] LABS: Candida species Negative (Negative); Gardnerella vaginalis Negative (Negative); Trichomoas vaginalis Negative (Negative)
== END ==
PROVIDERS: PCP Urology; Visit Provider Physician Assistant Medical
DX: N89.8 Other specified noninflammatory disorders of vagina (principal)
CPT/HCPCS: 87480; 87510; 87660

== ENCOUNTER → 2022-09-18 09:20 | Outpatient (CLI) | payer OTHER, SELFPAY ==
[2022-09-19 07:39] LABS: Strep Grp B PCR NEG for Grp B Strep
== END ==
PROVIDERS: PCP Urology; Visit Provider Obstetrics & Gynecology
DX: Z34.83 Encounter for supervision of other normal pregnancy, third trimester (principal); Z3A.36 36 weeks gestation of pregnancy
CPT/HCPCS: 87653

== ENCOUNTER 2022-09-23 21:03 | Observation (INO) | payer OTHER, SELFPAY | END 2022-09-24 00:15 | disposition home or self-care (01) | PROVIDERS: Admitting Provider Family Medicine; PCP Urology; Referring Provider Family Medicine; Visit Provider Family Medicine | DX: O47.1 False labor at or after 37 completed weeks of gestation (principal); Z3A.38 38 weeks gestation of pregnancy | CPT/HCPCS: 59025; G0378; G0379 ==

== ENCOUNTER 2022-09-30 09:33 | Outpatient (CLI) | payer OTHER, SELFPAY ==
--- NOTE | 2022-09-30 11:02 | P.TNLD_ITS ---
Visit Information Visit Information Date of evaluation: 09/30/22 Primary OB Provider: Neelima Qureshi On-call OB Provider: Milvia Amaya Reason for Evaluation: Yes rupture of membranes Comments/Additional reasons for admission: 32yo at 39w1d here for concern for ROM. No vaginal bleeding, contractions. She is feeling her baby move regularly. [facility] Medical History Acne (~2017) Anxiety and depression (~2018) Back pain Disease of spine (~2017) Fatigue Headache (~2017) Hypoglycemia Surgical History Anesthesia History of microdiscectomy (~10/11/18) History of sinus surgery (~01/2021) History of sleeve gastrectomy History of weight loss surgery (~06/11/21) [place] teeth extracted Family History Father Accident Mother Hypertension Diabetes mellitus Seizures Thyroid disease Hyperlipidemia Anxiety Grandfather Diabetes mellitus History of heart disease Hypertension Pancreatic cancer Social History marital status: number of children: 1 household members: spouse, family (mother) and children lives independently: Yes housing: house pets and animals: Yes (1 dog, manages all cleanup) education level: master's degree occupational status: previously employed and student current occupational exposures/hazards: No special andrea needs: No travel history: recent (domestic only) seatbelt use: always helmet use: Yes water heater temp set < 120 deg: Yes working smoke detector in home: Yes fire extinguisher in home: Yes carbon monox detector in home: Yes firearms in home: Yes firearms unloaded and locked: Yes do you feel safe at home: Yes Smoking Status: Never smoker second hand exposure: Yes (neighbors smoke) alcohol intake: never substance use type: does not use during the past year weight has: decreased > 10 lbs (gastric sleeve in May) well-balanced diet: daily or most days daily servings fruits/ve-4 caffeine: Yes (Aware of 200mg limit) Type(s) of exercise: walking and regular exercise (physical therapy) Evaluation Evaluation Baseline heart rate: 130 Variability: Moderate (11-25) monitor accelerations: Present Monitor Decelerations: Absent Category of Tracing: Reactive Diagnosis, Plan/Disposition Final Diagnosis (1) Vaginal discharge: Status: Acute Plan/Disposition Plan: 32yo at 39w1d here for concern for ROM. Amniosure negative. No contractions. Stable for d/c home. OB Disposition: home
== END 2022-09-30 11:00 | disposition home or self-care (01) ==
LOC: LABOR 09:54 → OB 10-02 11:03
PROVIDERS: PCP Urology; Referring Provider Family Medicine; Visit Provider Family Medicine
DX: Z03.71 Encounter for suspected problem with amniotic cavity and membrane ruled out (principal); O26.893 Other specified pregnancy related conditions, third trimester; N89.8 Other specified noninflammatory disorders of vagina; Z3A.39 39 weeks gestation of pregnancy
CPT/HCPCS: 59025; 84112; G0378; G0379

== ENCOUNTER 2022-10-02 11:29 | Inpatient (IN) | payer OTHER, SELFPAY ==
[2022-10-02] MEDS: OXYTOCIN PREMIX 30 UNIT/500 ML PLAST..BAG IV (14:01)
[2022-10-02 14:19] LABS: Add Manual Diff / Slide Review NO; Basophils Absolute Auto 0 /uL (0-100); Basophils Percent Auto 0.4 % (0-2); Eosinophils Absolute Auto 100 /uL (0-450); Eosinophils Percent Auto 1.2 % (2-4); Lymphocytes Absolute Auto 1900 /uL (1100-4500); Lymphocytes Percent Auto 21.2 % (25-40); Mean Corpuscular HGB Conc 34.3 % (30-36); Mean Corpuscular Hemoglobin 30.5 PG (26-34); Mean Corpuscular Volume 89.2 fL (80-100); Monocytes Absolute Auto 400 /uL (0-900); Monocytes Percent Auto 4.5 % (3-14); Neutrophils Absolute Auto 6500 /uL (1500-7000); Neutrophils Percent Auto 72.7 % (50-75); Platelet Count 208 X10^3/uL (150-400); Red Blood Cell Count 4.27 X10^6/uL (4.0-5.2); Red Cell Distribution Width 13.3 % (11.6-14.8); White Blood Cell Count 8.9 X10^3/uL (4.5-11.0)
--- NOTE | 2022-10-02 18:44 | P.HPOB_ITS ---
OB HPI Date/Time Date of admission: 10/02/22 Date Patient Seen: 10/02/22 Time Patient Seen: 12:30 History of Present Condition Chief complaint: OBS OF LABOR DAWIT Calculator Estimated Delivery Date Method Current WG Current Estimate 10/06/22 LMP (Certain) 39w 3d Other Estimates 10/08/22 Ultrasound #1 39w 1d Estimated Gestational Age (weeks): 39+3 : 2 Para: 1 care: good care, initiated at week # (8), number of visits (14) and pounds weight gain (36) Dating criteria OB: LMP confirmed by 1st trimester US Ultrasounds: normal 1st trimester US and normal mid trimester US Obstetrical complications: none Medical complications OB: none Indications Indication for induction OB: maternal discomfort and other (5 cm dilated) Preadmission Labs Last OB Lab Results: Blood Type AB Positive 10/02/22 12:39 Antibody Screen Negative 10/02/22 12:39 Hematocrit 38.0 % (36-46) 10/02/22 12:39 Hemoglobin 13.0 g/dL (12.0-16.0) 10/02/22 12:39 Hepatitis B Surface Antigen Negative s/c (NEGATIVE) 03/12/22 07 :37 Hepatitis C Antibody Negative s/c (NEGATIVE) 03/12/22 07:37 Rubella Antibody 12.8 IU/mL (>15) L 03/12/22 07:37 Varicella-Zoster IgG Antibody 602 index (Immune >165) 03/12/22 07:37 Glucose 1 Hour 113 mg/dL (76-139) 07/15/22 14:16 Group B Streptococcus (PCR) Neg for grp b strep 09/18/22 09:20 -: Chlamydia screen: negative, Gonorrhea screen: negative and Urine: negative Genetic Screens: Cell-free DNA: Normal (normal male) and Alpha-fetoprotein: Normal External Labs -: Urine: negative Prior (ies) Past Pregnancies Del. Date GA/Weeks Labor Lgth Wt Sex Route Outcome Anesthesia Place Delv Breastfeed Preg Comp Name 05/31/20 40.2 1 6 lb 10 oz Female vaginal live - full te [place] [employer] [place] 10 months none Suarhy Claudia-are-ee Evaluation Evaluation Baseline heart rate: 135 Variability: Moderate (11-25) monitor accelerations: Present Monitor Decelerations: Absent Dilation (cm): 5 Effacement (%): 85 station: -1 Position of cervix: mid Consistency: soft PFSH Medical History Acne (~2017) Anxiety and depression (~2018) Back pain Disease of spine (~2017) Fatigue Headache (~2017) Hypoglycemia Surgical History Anesthesia History of microdiscectomy (~10/11/18) History of sinus surgery (~01/2021) History of sleeve gastrectomy History of weight loss surgery (~06/11/21) [place] teeth extracted Family History Father Accident Mother Hypertension Diabetes mellitus Seizures Thyroid disease Hyperlipidemia Anxiety Grandfather Diabetes mellitus History of heart disease Hypertension Pancreatic cancer Social History marital status: number of children: 1 household members: spouse, family (mother) and children lives independently: Yes housing: house pets and animals: Yes (1 dog, manages all cleanup) education level: master's degree occupational status: previously employed and student current occupational exposures/hazards: No special andrea needs: No travel history: recent (domestic only) seatbelt use: always helmet use: Yes water heater temp set < 120 deg: Yes working smoke detector in home: Yes fire extinguisher in home: Yes carbon monox detector in home: Yes firearms in home: Yes firearms unloaded and locked: Yes do you feel safe at home: Yes Smoking Status: Never smoker second hand exposure: Yes (neighbors smoke) alcohol intake: never substance use type: does not use during the past year weight has: decreased > 10 lbs (gastric sleeve in May) well-balanced diet: daily or most days daily servings fruits/ve-4 caffeine: Yes (Aware of 200mg limit) Type(s) of exercise: walking and regular exercise (physical therapy) Meds Home Medications and Allergies Home Medications Medication Instructions Recorded Confirmed Type calcium carb,cit ER 600 mg-vit D3 2 tab PO DAILY 02/05/22 10/02/22 History 12.5 mcg (500 unit) tablet,ext.rel (Citracal-D3 Slow Release) cetirizine 10 mg tablet (Zyrtec) 10 mg PO DAILY PRN 02/05/22 10/02/22 History prenat.vits,jerry,[id number]-bmzb-mncip 1 tab PO DAILY 02/05/22 10/02/22 History albuterol sulfate 90 mcg/actuation 2 puff inhalation Q4-6H PRN 06/14/22 10/02/22 Rx aerosol inhaler shortness of breath or wheezing #8.5 grams breast pump (Lullaby Double #1 ea 09/04/22 10/02/22 Rx Electric Breast Pump) Allergies Allergy/AdvReac Type Severity Reaction Status Date / Time No Known Drug Allergies Allergy Verified 10/02/22 10:58 OB Exam Narrative Exam Narrative: Generally: Patient is sitting up in bed, no acute distress Fundal height: 40 cm Estimated weight: 6-1/2 lbs Extremities: Trace edema Objective Labs 10/02/22 12:39 Labs: Laboratory Results - last 24 hr 10/02/22 10/02/22 12:39 12:39 WBC 8.9 RBC 4.27 Hgb 13.0 Hct 38.0 MCV 89.2 MCH 30.5 MCHC 34.3 RDW 13.3 Plt Count 208 Neut % (Auto) 72.7 Lymph % (Auto) 21.2 L [place] % (Auto) 4.5 Eos % (Auto) 1.2 L Baso % (Auto) 0.4 Neut # (Auto) 6500 Lymph # (Auto) 1900 [place] # (Auto) 400 Eos # (Auto) 100 Baso # (Auto) 0 Blood Type AB Positive Antibody Screen Negative Assessment and Plan Assessment and Plan Assessment and Plan narrative: Assessment: 32-year-old 2 para 1 at 39 5/7 weeks' gestation with advanced cervical dilation Plan: Admit to center Pitocin per protocol Epidural as necessary Artificial rupture of membranes when able Time Spent with Patient Total time spent with greater than 50% in coordination of care (as documented) at patient's floor/unit and/or counseling patient:: 15-24 minutes
--- NOTE | 2022-10-02 18:49 | P.PCNOB_ITS ---
Events: Labor Induction Labor & Delivery Delivery date: 10/02/22 Intrapartal Events: Precipitous Labor < 3 hours Cervical ripening method: none Induction method: per pitocin protocol Delivery augmentation: rupture of membranes Delivery monitor: external FHT and external uterine Route of delivery: Episiotomy description: None L&D Laceration Description: None Quantitative Blood Loss: 50 Anesthesia Type: Epidural Complications: None Narrative: Artificial rupture of membranes was performed when patient was 10 cm. She pushed with 2 contractions and at 6:28 p.m., a live male infant delivered spontaneously in the GUALBERTO presentation, over an intact perineum. A tight nuchal cord x1 was cut on the perineum. The remainder of the body delivered without di fficulty and was placed on mom's abdomen. Cord bloods were obtained. Pitocin was given in the IV fluids. The placenta delivered intact with a three-vessel cord at 6:32 p.m.. Fundus was massaged to firm. The perineum was inspected and no lacerations were noted. Apgars 8 at 1 minute and 8 at 5 minutes. Epidural analgesia. . Mom and infant stable to recovery. Baby 1: gender: Male Presentation: vertex Position: Right Occiput Anterior Placenta delivery description: Spontaneous Cord Vessel Description: 3 Vessels, Nuchal Cord, Tight (cut on the perineum) and Clamped/Cut score (1 min): 8 score (5 min): 8 weight: 6 lb 4 oz Plan for aftercare: Routine care
[2022-10-02] MEDS: FENT 2MCG/ML BUPIV 0.125% EPI 200 MCG/100 ML PLAST..BAG 8 MCG EPIDURAL (19:10)
[2022-10-02 19:43] VITALS: BP 120/76
[2022-10-03] MEDS: DOCUSATE 100 MG CAPSULE PO (09:14)
[2022-10-03] MEDS: IBUPROFEN 600 MG TABLET PO (09:16)
[2022-10-03] MEDS: ACETAMINOPHEN 325 MG TABLET 650 MG PO (18:10)
[2022-10-03 18:45] VITALS: BP 124/84; PULSE 63; RESP 15; TEMP 36.6
[2022-10-03] MEDS: MEASLES,MUMPS,RUBELLA VACC/PF 0.5 ML VIAL SUBCUT (19:14)
== END 2022-10-03 19:30 | disposition home or self-care (01) | DRG 807 ==
PROVIDERS: Admitting Provider Obstetrics & Gynecology; PCP Urology; Referring Provider Obstetrics & Gynecology; Visit Provider Obstetrics & Gynecology
DX: O62.3 Precipitate labor (principal); Z37.0 Single live birth; Z3A.39 39 weeks gestation of pregnancy
CPT/HCPCS: 36415; 59050; 59400; 84112; 85025; 86850; 86900; 86901; G0379; J2590